=== PATIENT | female | born 1970 | race Hispanic/Latino ===

== ENCOUNTER 2016-12-16 10:07 | Emergency (ER) | payer OTHER ==
--- NOTE | 2016-12-16 10:39 | ED GENERAL ADULT ---
History of Present Illness General Chief Complaint: General Adult Stated Complaint: MED REFILL Source: patient, friend Exam Limitations: no limitations Vital Signs & Intake/Output Vital Signs & Intake/Output Vital Signs Date Time Temp Pulse Resp B/P B/P Pulse O2 O2 Flow FiO2 Mean Ox Delivery Rate 12/16 1230 84 16 162/90 98 Room Air 12/16 1205 98 Room Air 12/16 1128 99.6 86 15 191/92 12/16 1012 99.6 86 15 99 Room Air Room Air Allergies Coded Allergies: No Known Allergies (12/16/16) Reconcile Medications Butalb/Acetaminophen/Caffeine (Fioricet 50-300-40 MG Capsule) 50 MG-300 MG-40 MG CAPSULE 1 TAB PO TID PRN headache Clonazepam 1 MG TABLET 1 TAB PO QHS PRN ANXIETY Clonazepam 1 MG TABLET 1 TAB PO QPMP anxiety Losartan (Cozaar) 100 MG TABLET 1 TAB PO DAILY HTN Tramadol HCl 50 MG TABLET 1 TAB PO BIDP PRN PAIN Tramadol HCl (Ultram) 50 MG TABLET 1 TAB PO BID pain Triage Note: PT TO ED FOR REFILL OF CLONAZEPAM, LOSARTAN (100MG), AND TRAMADOL. PT RESIDES IN [place] AND HAS RAN OUT OF MEDS. Triage Nurses Notes Reviewed? yes Onset: Gradual Duration: day(s): Timing: recent history Severity: moderate No Modifying Factors: none LMP (ages 10-50): hysterectomy : No HPI: 46yo female presents to ED requesting medication refill. HPI obtained from friend as patient is Mauritian speaking only. Patient is from [place] and recently moved to [place] 1.5 weeks ago. Patient ran out of her medications 4 days ago. She has not yet established care with a PCP. She complains of blurry vision , headaches, and tactile fevers beginning 4 days ago worse last night. She usually takes Fiorecet for her headaches however ran out of this med. She also complains of abdominal pain since she came to [place] 1.5 weeks ago. She also states chronic low back pain x 2 years. She denies chest pain, dyspnea, nausea, vomiting, urinary symptoms, diarrhea, constipation. (ELGIN LEMUS PA-C) Past History Travel History Traveled to [place] past 21 day No Medical History Any Pertinent Medical History? see below for history Neurological: MIGRAINES EENT: NONE Cardiovascular: hypertension Respiratory: NONE Gastrointestinal: NONE Hepatic: NONE Renal: NONE Musculoskeletal: BACK SRX- ON TRAMADOL FOR PAIN Psychiatric: anxiety, depression Endocrine: NONE Blood Disorders: NONE Cancer(s): NONE SUPERVISOR LABORATORY/Reproductive: NONE Surgical History Surgical History: non-contributory Psychosocial History What is your primary language Mauritian Tobacco Use: Current Daily Use Daily Tobacco Use Amount/Type: => 5 Cigarettes daily ETOH Use: denies use Illicit Drug Use: denies illicit drug use Family History Hx Contributory? No (ELGIN LEMUS PA-C) Review of Systems Review of Systems Constitutional: Reports: see HPI. EENTM: Reports: see HPI. Respiratory: Reports: no symptoms. Cardiovascular: Reports: no symptoms. GI: Reports: no symptoms. Genitourinary: Reports: no symptoms. Musculoskeletal: Reports: no symptoms. Skin: Reports: no symptoms. Neurological/Psychological: Reports: see HPI. Hematologic/Endocrine: Reports: no symptoms. Immunologic/Allergic: Reports: no symptoms. All Other Systems: Reviewed and Negative (ELGIN LEMUS PA-C) Physical Exam Physical Exam General Appearance: well developed/nourished, no apparent distress, alert, awake Head: atraumatic, normal appearance Eyes: Bilateral: normal appearance, EOMI. Ears, Nose, Throat: hearing grossly normal Neck: normal inspection, supple, full range of motion Respiratory: normal breath sounds, no respiratory distress, lungs clear Cardiovascular: regular rate/rhythm Gastrointestinal: normal bowel sounds, soft, non-tender, no organomegaly Back: normal inspection, normal range of motion Extremities: normal inspection, normal range of motion Neurologic/Psych: awake, alert, oriented x 3, normal gait Skin: intact, normal color, warm/dry Core Measures ACS in differential dx? No CVA/TIA Diagnosis: No Severe Sepsis Present: No Septic Shock Present: No (ELGIN LEMUS PA-C) Progress Differential Diagnoses I considered the following diagnoses in my evaluation of the patient: [malignant HTN, hypertensive urgency, migrane headache, cluster headache, tension headache, chronic hypertension] Plan of Care: Patient complains of headache since stopping her medications 4 days ago, hypertensive on arrival . Dose of her home medications given in the ED. Patient states improvement in headache after medication. Repeat vital show BP decreasing. The patient is sitting comfortably in no acute distress, nontoxic appearing. Patient was discussed with Dr. Tatiana. Will refill her medications, patient was given referral for PCP, she will call to make an appointment for further medication refills in the future. She will return with worsening symptoms. The patient is in agreement with the plan of care. Initial ED EKG: none (ELGIN LEMUS PA-C) Departure Departure Disposition: HOME OR SELF CARE Condition: Stable Clinical Impression Primary Impression: Hypertension Secondary Impressions: Headache Referrals: YUDITH AGUILAR MD PATIENT HAS NO PRIMARY CARE DR (PCP/Family) Additional Instructions: Take your medications as prescribed. Follow up with primary care doctor, call office to make an appointment for further medication refills. Return with any worsening symptoms or concerns. Departure Forms: Customer Survey General Discharge Information Prescriptions: Current Visit Scripts Tramadol HCl 1 TAB PO BIDP PRN PAIN #8 TAB Clonazepam 1 TAB PO QHS PRN ANXIETY #8 TAB Losartan (Cozaar) 1 TAB PO DAILY #14 TAB Clonazepam 1 TAB PO QPMP #8 TAB Tramadol HCl (Ultram) 1 TAB PO BID #8 TAB Butalb/Acetaminophen/Caffeine (Fioricet 50-300-40 MG Capsule) 1 TAB PO TID PRN headache #20 TAB (ELGIN LEMUS PA-C) PA/[employer] Co-Sign Statement Statement: ED Attending supervision documentation- [X] I saw and evaluated the patient. I have also reviewed all the pertinent lab results and diagnostic results. I agree with the findings and the plan of care as documented in the PA's/[employer]'s documentation. [X] I have reviewed the ED Record and agree with the PA's/[employer]'s documentation. [] Additions or exceptions (if any) to the PAs/[employer]'s note and plan are summarized below: [] (TATIANA GOMES,LUNA) Critical Care Note Critical Care Note Critical Care Time: non-applicable (ELGIN LEMUS PA-C)
[2016-12-16] MEDS ORDERED: COZAAR100 M1 PO (12:23)
[2016-12-16] MEDS ORDERED: FIORICET 50-301 EACH PO ×2 (12:23→13:01)
[2016-12-16] MEDS ORDERED: ULTRAM50 M1 PO (12:23)
[2016-12-16] MEDS ORDERED: CLONAZEPAM1 M2 PO ×2 (12:23→12:24)
[2016-12-16] MEDS ORDERED: TRAMADOL HCL50 M1 PO (12:24)
[2016-12-16 12:30] VITALS: BP 162/90
== END 2016-12-16 13:13 ==
LOC: ERH 10:07
DX: I10 Essential (primary) hypertension (principal); R51 Headache; Z72.0 Tobacco use
CPT/HCPCS: J3490